=== PATIENT | male | born 1980 ===

== ENCOUNTER 2018-02-08 11:23 | Outpatient (CLI) | payer OTHER ==
[~2018-02-08] VITALS: Ht 190.5 cm; Wt 90.7 kg
== END 2018-02-08 11:45 | disposition home or self-care (01) ==
LOC: OFIC 805 11:23
DX: H60.8X2 Other otitis externa, left ear (principal); H90.42 Sensorineural hearing loss, unilateral, left ear, with unrestricted hearing on the contralateral side